=== PATIENT | male | born 1940 | race Caucasian/White ===

== ENCOUNTER 2017-09-15 14:51 | Emergency (ER) | payer OTHER ==
[~2017-09-15] VITALS: Ht 182.9 cm; Wt 95.0 kg
[2017-09-15 15:00] VITALS: Ht 182.9 cm; Wt 95.0 kg
[2017-09-15 15:46] LABS: BASO % 0.3 %; BASO ABS # 0.03 K/uL (0-0.2); EOS % 3.1 %; EOS ABS # 0.29 K/uL (0-0.5); HEMATOCRIT 34.1 % (42-52); HEMOGLOBIN 10.6 g/dL (14.0-18.0); IG# 0.12 K/uL (0.00-0.02); LYMPH % 18.2 %; LYMPH ABS # 1.71 K/uL (1.2-3.4); MEAN CELL VOLUME 71.3 fL (80-100); MEAN CORPUSCULAR HEMOGLOBIN 22.2 pg (25-34); MEAN CORPUSCULAR HGB CONC 31.1 g/dl (32-36); MONO % 8.7 %; MONO ABS # 0.82 K/uL (0.11-0.59); NEUT % 68.4 %; NEUT ABS # 6.41 K/uL (1.4-6.5); PLATELET COUNT 299 K/uL (130-400); RED CELL DISTRIBUTION WIDTH CV 15.7 % (11.5-14.5); RED CELL DISTRIBUTION WIDTH SD 41.3 fL (36.4-46.3); WHITE BLOOD COUNT 9.38 K/uL (4.8-10.8)
--- NOTE | 2017-09-15 15:46 | EMERGENCY ROOM VISIT NOTE ---
History Report prepared by Jackie: Aleida Gayle Under the Supervision of: Dr. Baldomero Doran D.O. First contact with patient: 15:35 Chief Complaint: CHEST PAIN Stated Complaint: CHEST PAIN,JAW PAIN,SOB, HEAD PAIN Nursing Triage Summary: pt reports 30 mins prior to arrival developed chest pain while at rest pt had recent brain stimulator placed for Parkinsons pt currently staying with family pt has pain in both sides of jaw and left side of neck pt has had neck pain since last when during pt exercise pt nauseated short of breath swelling to bilateral legs, left side worse History of Present Illness The patient is a 76 year old male who presents to the Emergency Room with complaints of discomfort in his chest and neck. The patient states that he's noticed discomfort across his neck. This is mostly anterior neck pain. He denies any injury or bony pain. Patient states he also has pain into his chest. He denies having any nausea or vomiting. He states he sometimes gets short of breath with exertion as well as lower extremity edema. He has not seen his family doctor for this discomfort. He does complain of some heartburn which she normally does not get. The patient denies having any abdominal pain or back pain. The patient states the pain is not worse with exertion. The pain in his neck is been continuous although the chest pain just began today. Source of History: patient Onset: today Position: chest Quality: other (discomfort) Timing: other (continuous) Associated Symptoms: + neck pain, + SOB, No nausea, No vomiting, No abdominal pain, No back pain Review of Systems See HPI for pertinent positives & negatives. A total of 10 systems reviewed and were otherwise negative. Past Medical & Surgical Medical Problems: (1) Parkinson's disease Family History No pertinent family history stated. Social History Smoking Status: Never Smoker Marital Status: Occupation Status: retired Current/Historical Medications Scheduled Carbidopa/Levodopa/Entacapone 37.5/150/200MG (Stalevo 150), 1 TAB PO TID Cyanocobalamin (Vitamin B-12 Tr), 5,000 MCG PO DAILY Dabigatran Etexilate Mesylate (Pradaxa), 150 MG PO BID Dexlansoprazole (Dexilant), 60 MG PO DAILY Diltiazem HCl (Diltiazem HCl ER), 120 MG PO DAILY Donepezil Hydrochloride (Donepezil Hcl), 10 MG PO DAILY Furosemide (Lasix), 20 MG PO 3XWK Metoprolol Tartrate (Lopressor) (Lopressor), 25 MG PO BID Oxybutynin Chloride (Ditropan), 5 MG PO BID Pramipexole Dihydrochloride (Pramipexole Dihydrochlori), 1.5 MG PO TID Tamsulosin Hcl (Flomax), 0.4 MG PO DAILY Venlafaxine Hcl (Effexor Xr), 150 MG PO DAILY Allergies Coded Allergies: Cefixime (Verified Allergy, Unknown, UNKNOWN, 09/15/17) Physical Exam Vital Signs Date Time Temp Pulse Resp B/P (MAP) Pulse Ox O2 Delivery O2 Flow Rate FiO2 09/15/17 18:31 155/82 09/15/17 18:09 62 15 96 09/15/17 18:00 135/78 09/15/17 17:44 126/69 09/15/17 16:34 124/72 09/15/17 16:26 57 18 94 09/15/17 16:21 61 22 97 09/15/17 15:51 63 20 94 09/15/17 15:51 95 Room Air 09/15/17 15:32 68 09/15/17 15:00 68 20 128/73 94 Room Air 09/15/17 15:00 95 Room Air Physical Exam GENERAL: Patient is awake alert in no acute distress patient is resting comfortably and showing no signs of anxiety EYES: The conjunctivae are clear. The pupils are round and reactive. EARS, NOSE, MOUTH AND THROAT: The nose is without any evidence of any deformity. Mucous membranes are moist tongue is midline NECK: The neck is nontender and supple. There is no tenderness over the carotid. RESPIRATORY: Normal respiratory effort is noted there is no evidence of wheezing rhonchi or rales CARDIOVASCULAR: Regular rate and rhythm noted there no murmurs rubs or gallops normal S1 normal S2 GASTROINTESTINAL: The abdomen is soft. Bowel sounds are present in all quadrants. Abdomen is nontender MUSCULOSKELETAL/EXTREMITIES: There is no evidence of gross deformity full range of motion is noted in the hips and shoulders SKIN: There is no obvious evidence of any rash. Trace pedal edema was noted bilaterally. NEUROLOGIC: Patient is awake alert and oriented x3. Strength is symmetric. Medical Decision & Procedures ER Provider Diagnostic Interpretation: X-ray results as stated below per interpretation by me and the radiologist. Radiology results as stated below per my review and radiologist interpretation: SINGLE VIEW CHEST CLINICAL HISTORY: Atypical chest pain. FINDINGS: 2 AP, portable, upright chest radiographs are obtained. No prior studies are available for comparison at the time of dictation. The examination is degraded by portable technique and patient rotation. An electronic device partially secures the left upper chest. Leads extend into the neck. The heart is enlarged and there is atherosclerotic calcification of the thoracic aorta. The pulmonary vasculature is noncongested. There is mild bibasilar atelectasis. The lungs and pleural spaces are otherwise clear. No pneumothorax is seen. The skeletal structures are osteopenic. The bony thorax is grossly intact. IMPRESSION: Cardiomegaly with no acute cardiopulmonary abnormality. Electronically signed by: Jaden Strong M.D. 09/15/2017 3:53 PM Dictated Date/Time: 09/15/2017 3:52 PM (CHEST FOR PE) ANGIO WITH CT DOSE: 971.52 mGy.cm HISTORY: Chest pain dyspnea TECHNIQUE: Multiaxial CT images of the chest were performed following the intravenous administration of contrast to evaluate the pulmonary arteries. Maximal intensity projection images were also obtained. A dose lowering technique was utilized adhering to the principles of ALARA. COMPARISON STUDY: None. FINDINGS: There is a normal caliber thoracic aorta with no evidence for dissection. There is no evidence for pulmonary embolus. No pleural effusions. No pneumothorax. The liver and spleen are unremarkable. No mediastinal or hilar lymphadenopathy. The central airways are patent. The lungs are clear. Minimal scattered atelectasis. Small hiatal hernia. IMPRESSION: No evidence for pulmonary embolus. Lungs are grossly clear. Small hiatal hernia. The above report was generated using voice recognition software. It may contain grammatical, syntax or spelling errors. Electronically signed by: Kirby Munoz M.D. 09/15/2017 5:11 PM Dictated Date/Time: 09/15/2017 5:08 PM NECK ANGIO WITH CONTRAST HISTORY: Neck pain dyspnea TECHNIQUE: Multiaxial CT images of the neck were performed following the intravenous administration of contrast to evaluate the major cervical vessels. Maximum intensity projection images were also obtained. All measurements were calculated based on NASCET criteria. A dose lowering technique was utilized adhering to the principles of ALARA. COMPARISON STUDY: None. FINDINGS: The aortic arch and proximal great vessels are widely patent. There is no significant stenosis, occlusion, or dissection identified within the bilateral common carotid, internal carotid, or vertebral arteries. Mild scattered plaque formation bilaterally at the carotid bifurcations and to a lesser extent vertebral basilar system. No significant stenotic process. Significant degenerative change of the cervical spine. IMPRESSION: No significant stenosis, occlusion, or dissection identified within the carotid or vertebral arteries. Minimal/mild scattered plaque formation. Considerable degenerative change cervical spine. The above report was generated using voice recognition software. It may contain grammatical, syntax or spelling errors. Electronically signed by: Kirby Munoz M.D. 09/15/2017 5:15 PM Dictated Date/Time: 09/15/2017 5:11 PM Laboratory Results 09/15/17 15:17 Red Blood Count 4.78, Mean Corpuscular Volume 71.3, Mean Corpuscular Hemoglobin 22.2, Mean Corpuscular Hemoglobin Concent 31.1, Mean Platelet Volume 9.0, Neutrophils (%) (Auto) 68.4, Lymphocytes (%) (Auto) 18.2, Monocytes (%) (Auto) 8.7, Eosinophils (%) (Auto) 3.1, Basophils (%) (Auto) 0.3, Neutrophils # (Auto) 6.41, Lymphocytes # (Auto) 1.71, Monocytes # (Auto) 0.82, Eosinophils # (Auto) 0.29, Basophils # (Auto) 0.03 09/15/17 15:17 Test 09/15/17 15:17 09/15/17 15:45 White Blood Count 9.38 K/uL (4.8-10.8) Red Blood Count 4.78 M/uL (4.7-6.1) Hemoglobin 10.6 g/dL (14.0-18.0) Hematocrit 34.1 % (42-52) Mean Corpuscular Volume 71.3 fL (80-100) Mean Corpuscular Hemoglobin 22.2 pg (25-34) Mean Corpuscular Hemoglobin Concent 31.1 g/dl (32-36) Platelet Count 299 K/uL (130-400) Mean Platelet Volume 9.0 fL (7.4-10.4) Neutrophils (%) (Auto) 68.4 % Lymphocytes (%) (Auto) 18.2 % Monocytes (%) (Auto) 8.7 % Eosinophils (%) (Auto) 3.1 % Basophils (%) (Auto) 0.3 % Neutrophils # (Auto) 6.41 K/uL (1.4-6.5) Lymphocytes # (Auto) 1.71 K/uL (1.2-3.4) Monocytes # (Auto) 0.82 K/uL (0.11-0.59) Eosinophils # (Auto) 0.29 K/uL (0-0.5) Basophils # (Auto) 0.03 K/uL (0-0.2) RDW Standard Deviation 41.3 fL (36.4-46.3) RDW Coefficient of Variation 15.7 % (11.5-14.5) Immature Granulocyte % (Auto) 1.3 % Immature Granulocyte # (Auto) 0.12 K/uL (0.00-0.02) Prothrombin Time 12.3 SECONDS (9.0-12.0) Prothromb Time International Ratio 1.2 (0.9-1.1) Activated Partial Thromboplast Time 36.2 SECONDS (21.0-31.0) Partial Thromboplastin Ratio 1.4 Anion Gap 8.0 mmol/L (3-11) Est Creatinine Clear Calc Drug Dose 47.3 ml/min Estimated GFR () 47.0 Estimated GFR (Non- 40.6 BUN/Creatinine Ratio 20.7 (10-20) Calcium Level 9.8 mg/dl (8.5-10.1) Total Bilirubin 0.3 mg/dl (0.2-1) Direct Bilirubin < 0.1 mg/dl (0-0.2) Aspartate Amino Transf (AST/SGOT) 14 U/L (15-37) Alanine Aminotransferase (ALT/SGPT) 12 U/L (12-78) Alkaline Phosphatase 143 U/L (45-117) Total Creatine Kinase 18 U/L (39-308) Creatine Kinase MB 1.1 ng/ml (0.5-3.6) Creatine Kinase MB Ratio 6.1 (0-3.0) Troponin I < 0.015 ng/ml (0-0.045) Total Protein 7.2 gm/dl (6.4-8.2) Albumin 3.3 gm/dl (3.4-5.0) Lipase 69 U/L (73-393) Bedside D-Dimer > 450 ng/mlFEU (0-450) Laboratory results per my review. ECG Per My Interpretation Indication: chest pain Rate (beats per minute): 62 Rhythm: normal sinus Findings: no acute ischemic change, no ectopy ED Course 1545: The patient was evaluated in room B12B. A complete history and physical examination were performed. 1650: I reevaluated the patient. I updated him on the results. 175: Upon reevaluation, the patient is resting comfortably. I discussed the results and treatment plan with him. He verbalized agreement of the treatment plan. He was discharged home. Medical Decision Prior records/ancillary studies reviewed. Triage Nursing notes reviewed. The patient's history was concerning for chest pain. Differential diagnosis: Etiologies such as cardiac ischemia, aortic dissection, pulmonary embolism, pneumonia, pneumothorax, musculoskeletal, infections, pericarditis, myocarditis , esophageal rupture, gastrointestinal, as well as others were entertained. The patient is a 76-year-old male who presented to the emergency department for an evaluation of anterior neck pain as well as chest discomfort. The patient recently had a stimulator placed for Parkinson's. He was unsure if this has something to do with his discomfort because it appeared to go up the side where his stimulator was placed. The patient has had ongoing pain throughout the day. Despite this he had an EKG that did not reveal any definite ischemic abnormalities and his cardiac biomarkers was negative. I discussed the patient' s laboratory and radiographic studies with him. I also discussed the limitations of the emergency department workup for chest pain with him. Because of his laboratory findings I discussed outpatient follow-up with the patient. I do feel that he can follow up with his primary care physician. I recommended that he continue all medications as prescribed and avoid any strenuous activity. He is also encouraged to return to the emergency department immediately if symptoms change or worsening of the need arises. Medication Reconcilliation Current Medication List: was personally reviewed by me Blood Pressure Screening Patient's blood pressure: Normal blood pressure Blood pressure disposition: Did not require urgent referral Impression Primary Impression: Chest pain Additional Impression: Neck pain Scribe Attestation The scribe's documentation has been prepared under my direction and personally reviewed by me in its entirety. I confirm that the note above accurately reflects all work, treatment, procedures, and medical decision making performed by me. Departure Information Dispostion Home / Self-Care Referrals No Doctor, Assigned (PCP) Forms Call Back Authorization, HOME CARE DOCUMENTATION FORM, IMPORTANT VISIT INFORMATION Patient Instructions ED Chest Pain Atypical Unkn Cause, ED Neck Pain No Trauma, [facility] Additional Instructions Rest and avoid any strenuous activity. Continue all medications as prescribed. Return to the emergency department immediately if symptoms change worsen or the need arises. Call your family doctor to schedule a follow-up appointment for this week. Problem Qualifiers Primary Impression: Chest pain Chest pain type: unspecified Qualified Codes: R07.9 - Chest pain, unspecified
[2017-09-15 15:51] VITALS: O2SAT 95
[2017-09-15 15:51] LABS: INR 1.2 (0.9-1.1); PTT PATIENT 36.2 SECONDS (21.0-31.0)
--- NOTE | 2017-09-15 15:54 | DIAGNOSTIC IMAGING REPORT ---
SINGLE VIEW CHEST CLINICAL HISTORY: Atypical chest pain. FINDINGS: 2 AP, portable, upright chest radiographs are obtained. No prior studies are available for comparison at the time of dictation. The examination is degraded by portable technique and patient rotation. An electronic device partially secures the left upper chest. Leads extend into the neck. The heart is enlarged and there is atherosclerotic calcification of the thoracic aorta. The pulmonary vasculature is noncongested. There is mild bibasilar atelectasis. The lungs and pleural spaces are otherwise clear. No pneumothorax is seen. The skeletal structures are osteopenic. The bony thorax is grossly intact. IMPRESSION: Cardiomegaly with no acute cardiopulmonary abnormality. Electronically signed by: Jaden Strong M.D. 09/15/2017 3:53 PM Dictated Date/Time: 09/15/2017 3:52 PM
[2017-09-15 15:55] LABS: ALBUMIN 3.3 gm/dl (3.4-5.0); ALT/SGPT 12 U/L (12-78); AST/SGOT 14 U/L (15-37); BLOOD UREA NITROGEN 34 mg/dl (7-18); CALCIUM 9.8 mg/dl (8.5-10.1); CARBON DIOXIDE 28 mmol/L (21-32); CREATININE 1.64 mg/dl (0.60-1.40); GLUCOSE 100 mg/dl (70-99); LIPASE 69 U/L (73-393); POTASSIUM 3.8 mmol/L (3.5-5.1); SODIUM 137 mmol/L (136-145)
[2017-09-15 16:01] LABS: ALKALINE PHOSPHATASE 143 U/L (45-117); CKMB 1.1 ng/ml (0.5-3.6); TOTAL PROTEIN 7.2 gm/dl (6.4-8.2)
[2017-09-15] MEDS ORDERED: CARBTAB3 PO (16:48)
[2017-09-15] MEDS ORDERED: DLCSR120 PO (16:50)
[2017-09-15] MEDS ORDERED: DONE1TAB26 PO (16:53)
[2017-09-15] MEDS ORDERED: [UNRECOGNIZED DRUG - CODE] PO (16:55)
[2017-09-15] MEDS ORDERED: DTR/5 PO (16:56)
[2017-09-15] MEDS ORDERED: DEXL60CA4 PO (16:57)
[2017-09-15] MEDS ORDERED: VENL75CA PO (17:03)
[2017-09-15] MEDS ORDERED: DABI150C PO (17:05)
[2017-09-15] MEDS ORDERED: FURO-85 PO (17:06)
[2017-09-15] MEDS ORDERED: [UNRECOGNIZED DRUG - CODE] PO (17:08)
[2017-09-15] MEDS ORDERED: METO25TA56 PO (17:09)
[2017-09-15] MEDS ORDERED: TAMS0.4C38 PO (17:10)
--- NOTE | 2017-09-15 17:12 | DIAGNOSTIC IMAGING REPORT ---
(CHEST FOR PE) ANGIO WITH CT DOSE: 971.52 mGy.cm HISTORY: Chest pain dyspnea TECHNIQUE: Multiaxial CT images of the chest were performed following the intravenous administration of contrast to evaluate the pulmonary arteries. Maximal intensity projection images were also obtained. A dose lowering technique was utilized adhering to the principles of ALARA. COMPARISON STUDY: None. FINDINGS: There is a normal caliber thoracic aorta with no evidence for dissection. There is no evidence for pulmonary embolus. No pleural effusions. No pneumothorax. The liver and spleen are unremarkable. No mediastinal or hilar lymphadenopathy. The central airways are patent. The lungs are clear. Minimal scattered atelectasis. Small hiatal hernia. IMPRESSION: No evidence for pulmonary embolus. Lungs are grossly clear. Small hiatal hernia. The above report was generated using voice recognition software. It may contain grammatical, syntax or spelling errors. Electronically signed by: Kirby Munoz M.D. 09/15/2017 5:11 PM Dictated Date/Time: 09/15/2017 5:08 PM
--- NOTE | 2017-09-15 17:16 | DIAGNOSTIC IMAGING REPORT ---
NECK ANGIO WITH CONTRAST HISTORY: Neck pain dyspnea TECHNIQUE: Multiaxial CT images of the neck were performed following the intravenous administration of contrast to evaluate the major cervical vessels. Maximum intensity projection images were also obtained. All measurements were calculated based on NASCET criteria. A dose lowering technique was utilized adhering to the principles of ALARA. COMPARISON STUDY: None. FINDINGS: The aortic arch and proximal great vessels are widely patent. There is no significant stenosis, occlusion, or dissection identified within the bilateral common carotid, internal carotid, or vertebral arteries. Mild scattered plaque formation bilaterally at the carotid bifurcations and to a lesser extent vertebral basilar system. No significant stenotic process. Significant degenerative change of the cervical spine. IMPRESSION: No significant stenosis, occlusion, or dissection identified within the carotid or vertebral arteries. Minimal/mild scattered plaque formation. Considerable degenerative change cervical spine. The above report was generated using voice recognition software. It may contain grammatical, syntax or spelling errors. Electronically signed by: Kirby Munoz M.D. 09/15/2017 5:15 PM Dictated Date/Time: 09/15/2017 5:11 PM
[2017-09-15 18:09] VITALS: PULSE 62; O2SAT 96
[2017-09-15 18:31] VITALS: BP 155/82
== END 2017-09-15 18:46 | disposition home or self-care (01) ==
LOC: C.EDB 14:53
DX: R07.9 Chest pain, unspecified (principal); M54.2 Cervicalgia; G20 Parkinson's disease